=== PATIENT | female | born 1950 | race Caucasian/White ===

== ENCOUNTER → 2016-09-05 | Outpatient (CLI) | payer OTHER, MEDICARE ==
--- NOTE | 2016-09-05 13:33 | RAD ---
Indication sinus congestion. Axial images to the paranasal sinuses were obtained and reformatted in the coronal and sagittal planes. No prior imaging targeted to the paranasal sinuses is available. The visualized brain appears unremarkable. No significant bony finding is seen. No significant soft tissue finding is seen. Mastoid air cells appear normally aerated. The frontal sinus is normally aerated. Maxillary sinuses appear unremarkable apart from some minimal mucosal thickening associated with the left maxillary sinus. The sphenoid sinus is unremarkable. There is some minimal mucous plugging of the left ostiomeatal complex with associated minimally diminished aeration of left ethmoid air cells IMPRESSION: Slight mucosal thickening involving the left maxillary sinus. Minimal opacification of left ethmoid air cells PQRS Compliance Statement: One or more of the following individualized dose reduction techniques were utilized for this examination: 1. Automated exposure control 2. Adjustment of the mA and/or kV according to patient size 3. Use of iterative reconstruction technique
== END | disposition home or self-care (01) ==
LOC: CT 12:45
PROVIDERS: ATTEND Family Medicine
DX: J32.8 Other chronic sinusitis (principal); J01.40 Acute pansinusitis, unspecified
CPT/HCPCS: 70486

== ENCOUNTER → 2017-05-12 | Outpatient (CLI) | payer MEDICARE, OTHER ==
--- NOTE | 2017-05-12 15:51 | RAD ---
DEXA scan Indication: Osteoporosis. Technique: Bone DEXA scan Comparison: None Findings: The bone mineral density at L1-L4 measures 1.217 g/sq cm with T score of 0.3. The bone mineral density in the right femoral neck measures 0.724 g/sq cm where with T score of -2.6. Impression: Osteoporosis at the femoral neck. Normal bone mineral density in the lumbar spine. Please note that degenerative changes in the spine may falsely elevate bone mineral density.
== END | disposition home or self-care (01) ==
LOC: DXRAD 14:55
PROVIDERS: ATTEND Family Medicine
DX: Z13.820 Encounter for screening for osteoporosis (principal); Z85.3 Personal history of malignant neoplasm of breast; M81.0 Age-related osteoporosis without current pathological fracture
CPT/HCPCS: 77080

== ENCOUNTER → 2018-03-26 | Outpatient (CLI) | payer MEDICARE ==
--- NOTE | 2018-03-26 15:53 | RAD ---
DATE: 03/26/2018 EXAM: MAMMO ZARINA HARRISONG LT, BREAST LEFT HISTORY: Breast lump, previous left breast cancer COMPARISON: 02/18/2018 This study was interpreted with the benefit of Computerized Aided Detection (CAD). Breast Density: SCATTERED The breast parenchyma shows scattered fibroglandular densities. Breast parenchyma level B. FINDINGS: 2-D and 3-D tomosynthesis imaging was performed in CC and MLO projections. A BB was placed on the skin surface over the area of palpable concern along the left lateral margin of the nipple. There is a small underlying nodule which cannot be clearly from the skin. This is best visualized on oblique tomogram #15. This was not evident on the previous study. It measures approximately 7 mm. No other new or enlarging breast densities are seen. Scattered benign type calcifications are present. Left breast ultrasound, 03/26/2018: A targeted ultrasound was performed of the area of palpable concern laterally along the inferolateral margin of the nipple. There is a 7 x 7 x 5 mm smooth oval shaped hypoechoic nodule at this level which involves the skin. No internal color flow is seen. There is some vascularity around its rim. No definite posterior acoustic enhancement or shadowing is seen. IMPRESSION: Small skin related nodule along the lateral margin of the nipple as described above. This may be an epidermal inclusion cyst. A neoplastic nodule originating in the skin or invading the skin cannot be excluded in this patient with a history of left breast cancer. Surgical consultation is suggested. Percutaneous biopsy is not advisable in this situation where a skin related lesion may be an epidermal inclusion cyst. BI-RADS CATEGORY: 4 SUSPICIOUS ABNORMALITY- BIOPSY SHOULD BE CONSIDERED RECOMMENDED FOLLOW-UP: BIO BIOPSY RECOMMENDED PQRS compliance statement: Patient information was entered into a reminder system with a target due date for the next mammogram. Mammography is a sensitive method for finding small breast cancers, but it does not detect them all and is not a substitute for careful clinical examination. A negative mammogram does not negate a clinically suspicious finding and should not result in delay in biopsying a clinically suspicious abnormality. "Our facility is accredited by the [employer] Mammography Program."
== END | disposition home or self-care (01) ==
LOC: MAMMO 12:50
PROVIDERS: ATTEND Family Medicine
DX: N63.21 Unspecified lump in the left breast, upper outer quadrant (principal); Z85.3 Personal history of malignant neoplasm of breast
CPT/HCPCS: 76641; 77065; G0279; 77061

== ENCOUNTER 2018-10-21 15:22 | Emergency (ER) | payer MEDICARE ==
[~2018-10-21] VITALS: Ht 162.6 cm; Wt 83.5 kg
[2018-10-21 15:25] VITALS: BP 140/77
--- NOTE | 2018-10-21 15:47 | PHYS DOC ---
Adult General Chief Complaint Chief Complaint: FINGER INJURY HPI HPI 68-year-old female presents with an injury to the distal aspect of her left ring finger. She states she picked up a bundle of markers and felt a pop then looked down and her distal finger was flexed. She denies any pain. She denies any other injury.[] Review of Systems Review of Systems Musculoskeletal: Per history of present illness[] [] All other systems were reviewed and found to be within normal limits, except as documented in this note. Physical Exam Physical Exam Constitutional: Well developed, well nourished, no acute distress, non-toxic appearance. [] HENT: Normocephalic, atraumatic, bilateral external ears normal, oropharynx moist, no oral exudates, nose normal. [] Eyes: PERRLA, EOMI, conjunctiva normal, no discharge. [] Neck: Normal range of motion, no tenderness, supple, no stridor. [] Cardiovascular:Heart rate regular rhythm, no murmur [] Lungs & Thorax: Bilateral breath sounds clear to auscultation [] Abdomen: Bowel sounds normal, soft, no tenderness, no masses, no pulsatile m asses. [] Skin: Warm, dry, no erythema, no rash. [] Back: No tenderness, no CVA tenderness. [] Extremities: Patient has a trigger finger left ring finger DIP. [] Neurologic: Alert and oriented X 3, normal motor function, normal sensory function, no focal deficits noted. [] Psychologic: Affect normal, judgement normal, mood normal. [] EKG EKG [] Radiology/Procedures Radiology/Procedures [] Course & Med Decision Making Course & Med Decision Making Pertinent Labs and Imaging studies reviewed. (See chart for details) [Patient was placed in a splint holding her DIP left ring finger in extension. Splint was placed by the nurse.] Dragon Disclaimer Dragon Disclaimer This electronic medical record was generated, in whole or in part, using a voice recognition dictation system. Departure Departure: Impression: Primary Impression: Trigger finger, left Disposition: HOME, SELF-CARE Condition: STABLE Referrals: KANA MENDIETA MD Follow with Dr. Mendieta next week for recheck Patient Instructions: Trigger Finger Additional Instructions: Keep ear splint in place at all times until you're seen by Dr. Mendieta Problem Qualifiers Primary Impression: Trigger finger, left Trigger finger location: ring finger Qualified Codes: M65.342 - Trigger finger, left ring finger GARY WILCOX DO October 21, 2018 15:46
== END 2018-10-21 16:00 | disposition home or self-care (01) ==
LOC: ER 15:22
DX: M65.342 Trigger finger, left ring finger (principal); X50.9XXA Other and unspecified overexertion or strenuous movements or postures, initial encounter; Y93.89 Activity, other specified; Y92.89 Other specified places as the place of occurrence of the external cause; Y99.8 Other external cause status
CPT/HCPCS: 29130; 99283